=== PATIENT | female | born 2000 | race Caucasian/White ===

== ENCOUNTER 2021-03-21 21:11 | Emergency (ER) | payer OTHER ==
[~2021-03-21] VITALS: Ht 154.9 cm; Wt 92.1 kg
[2021-03-21 21:31] VITALS: BP 118/76
[2021-03-21] MEDS ORDERED: IBUPROFEN25 GM PO (21:36)
== END 2021-03-21 23:52 | disposition home or self-care (01) ==
LOC: ER 21:11
DX: U07.1 COVID-19 (principal); F12.90 Cannabis use, unspecified, uncomplicated